=== PATIENT | female | born 1985 | race Two or more races ===

== ENCOUNTER 2024-12-01 11:12 | Emergency (ER) | payer MEDICAID, SELFPAY ==
[2024-12-01] VITALS (13 sets, daily range): BP systolic 128–145; BP diastolic 61–77; PULSE 69–94; RESP 14–19; TEMP 36.7–37.3; O2SAT 100; BMI 32.7
[2024-12-01 12:00] LABS: Basophils # (Auto) 0.1 Thou/mm3 (0.0-0.2); Basophils % (Auto) 1 % (0-2.5); Eosinophils % (Auto) 0 % (0-10); Hematocrit 23.5 % (36.0-46.0); Immature Granulocytes % (Auto) 0 % (0-0); Immature Granulocytes Auto 0.01 Thou/mm3 (0.00-0.00); Lymphocytes # (Auto) 1.6 Thou/mm3 (1.0-4.8); Lymphocytes % (Auto) 20 % (10-50); Mean Corpuscular HGB Conc 26.8 g/dl (31.0-37.0); Mean Corpuscular Hemoglobin 15.3 pg (25.0-35.0); Mean Corpuscular Volume 57 fL (80-100); Monocytes # (Auto) 0.4 Thou/mm3 (0.0-0.8); Monocytes % (Auto) 5 % (0-12); Neutrophils # (Auto) 5.9 Thou/mm3 (1.8-7.7); Neutrophils % (Auto) 73 % (37-80); Nucleated Red Blood Cell % 0 /100 WBC (0); Platelet Count 551 Thou/mm3 (140-440); RDW Standard Deviation 39.8 fL (36.4-46.3); Red Blood Count 4.13 Miln/mm3 (4.00-5.20); White Blood Count 8.1 Thou/mm3 (3.6-11.0)
[2024-12-01 12:13] LABS: INR 0.9 (0.9-1.3); Partial Thromboplastin Time 21.6 Seconds (22.0-36.0); Prothrombin Time 10.3 Seconds (9.0-12.2)
[2024-12-01 12:16] LABS: HCG,Qualitative Serum Negative
[2024-12-01 12:19] LABS: Hemoglobin 6.3 g/dL (12.0-16.0)
--- NOTE | 2024-12-01 12:28 | PD.EDRME ---
Rapid Medical Screening Exam RME Arrival date/time: 12/01/24 11:12 39-year-old female presents to the emergency department today with complaints of low hemoglobin Chief Complaint: General Adult/Misc Complain Vital signs: Vital Signs Temperature 99.1 F 12/01/24 11:31 Pulse Rate 94 12/01/24 11:31 Respiratory Rate 19 12/01/24 11:31 Blood Pressure 129/61 12/01/24 11:31 Pulse Oximetry (%) 100 12/01/24 11:31 Oxygen Delivery Method Room Air 12/01/24 11:31
[2024-12-01 12:31] LABS: Alanine Aminotransferase 7 U/L (10-49); Albumin, Serum 4.8 gm/dL (3.5-5.0); Albumin/Globulin Ratio 1.5 (1.2-2.2); Alkaline Phosphatase 69 U/L (46-116); Anion Gap 8 (7-16); Aspartate Amino Transferase < 8 U/L (0-34); BUN/Creatinine Ratio 13 Ratio (12-20); Bilirubin,Total 0.6 mg/dL (0.3-1.2); Blood Urea Nitrogen 10 mg/dL (9-23); Calcium 9.7 mg/dL (8.3-10.6); Calcium (Corrected) 9.7 mg/dL (8.5-10.1); Carbon Dioxide 24.2 mMol/L (20.0-31.0); Chloride 104 mMol/L (98-107); Creatinine (Component) 0.8 mg/dL (0.6-1.3); Estimated Creatinine Clearance 92.3 mL/min (>60); Globulin 3.3 gm/dL (2.3-3.5); Glucose 126 mg/dL (74-106); Osmolality,Calculated 272 (275-295); Potassium 3.5 mMol/L (3.4-5.1); Sodium 136 mMol/L (136-145); Total Protein 8.1 gm/dL (5.7-8.2); eGFR > 60 See Note
[2024-12-01 14:03] LABS: Ferritin 1 ng/mL (7.3-270.7); Total Iron Binding Capacity 443 mcg/dL (250-425)
[2024-12-01 14:14] LABS: Iron 10 mcg/dL (50-170); Percent Iron Saturation 2 % (20-55); Unsaturated Iron Binding 433 (225-295)
--- NOTE | 2024-12-01 14:18 | PD.EDADULT ---
ED General RME/HPI General Chief complaint: General Adult/Misc Complain Stated complaint: SENT FOR TRANSFUSION, BLOOD DONE SATURDAY Arrival date/time: 12/01/24 11:12 RME / HPI RME / HPI narrative: 12/01/24 11:12 39-year-old female presents to the emergency department today with complaints of low hemoglobin DR. BRICEÑO MAIN ED EVALUATION: 39 year old female with history of anemia presents to the ED sent by PCP at [facility] for evaluation of anemia today. Patient reports for several days has felt globally weak and intermittently dizzy. Consulted with PCP today who checked hgb in the office and advised to come here for further evaluation. Patient reports she does have heavy bleeding during menses and first day of last menses was 11/12/2024, lasting 7 days which is normal for her. Denies bleeding elsewhere. No other associated symptoms or complaints reported. Related Data Previous Rx's ?Medication ?Instructions ?Recorded Hydrocodone/Acetaminophen * (NORCO 1 tab PO Q4H PRN pain #30 tabs 04/20/16 5/325 *) Allergies Allergy/AdvReac Type Severity Reaction Status Date / Time No Known Allergies Allergy Verified 12/01/24 11:16 Review of Systems Review of Systems Narrative Review of Systems: Constitutional: DENIES; Fevers Eyes: DENIES; Loss of vision Head/Ear/Nose: DENIES; Loss of hearing Throat: DENIES; Dysphagia Cardiovascular: DENIES; Chest pain, dyspnea or syncope Respiratory: DENIES; Shortness of breath Gastrointestinal: DENIES; Rectal bleeding or melena. Genitourinary: DENIES; Dysuria (painful or difficult urination) Musculoskeletal: DENIES; Arthralgia (pain in a joint),; Skin: DENIES; Rash Neurological: DENIES; Loss of function or movement Psychiatric: DENIES; recent major life stressor, emotional problem, illicit drug use or abuse Endocrinology: DENIES; Weight change Hematologic/Lymphatic: SEE HPI +hxx of anemia and heavy vaginal bleeding. DENIES; Abnormal bruising Allergic/Immunologic: DENIES; Urticaria (hives) Past Medical History Past Medical History CARDIAC: Negative Congestive Heart Failure RESPIRATORY: Negative Chronic Obstructive Pulmonary Disease (COPD) GENITOURINARY: Negative Renal Disease ENDOCRINE: Negative Diabetes Mellitus Type 1 or Diabetes Mellitus Type 2 HEMATOLOGIC: Positive Anemia Surgical History SURGICAL: Positive Section Social History SMOKING STATUS: Never smoker ED Exam Narrative Physical exam: Physical Exam: General: The vital signs were reviewed. The patient is non-toxic, in no apparent distress and appears healthy with a patent airway, no respiratory distress and has no apparent circulatory problems. Head & Scalp: Normocephalic, atraumatic. Face: Appears normal and is without lesions, deformity. Ears: Left external pinna appears normal. Right external pinna appears normal. Eyes: Pale conjunctiva otherwise the sclera is anicteric. No obvious photophobia. The Left and Right Orbit/Lid/Conjunctiva appears normal without swelling, discoloration or injection. Nose: The nose is without deformity, discharge or tenderness; Throat: Appears normal. The mucous membranes are pink and moist without exudates, redness or mass seen. The tongue appears normal. Neck: The neck is supple and no apparent mass or adenopathy. Chest: The chest wall is normal in size and symmetry and has no chest wall tenderness or crepitus. The patient displays normal ventilator effort without retractions, accessory muscle use and has adequate air movement bilaterally with no wheezes and no rales. Cardiovascular: Regular rate and rhythm; No murmurs, rubs, or gallops; Gastrointestinal: The abdomen appears normal. No obvious hernias or mass. The abdomen is soft and benign, non-distended, with no pain, no guarding and no rebound tenderness. Bowel sounds are present and normal sounding. No CVA tenderness. Genitourinary: Back/Spine: Nontender normal inspection Extremities/Musculoskeletal/lymphatic: The bilateral upper and lower extremities are warm. There is no evidence of arterial insufficiency. There is no evidence of venous insufficiency/edema. The patient spontaneously moves bilateral upper and lower extremities with no pain and no limitation of movement. There is no apparent, injury or trauma. Skin: The skin is warm, dry and intact. No rashes. No petechia. No purpura. No abnormal bruising. The color is appropriate with no cyanosis. Mental status/Psychiatric: Mental status is appropriate for age. The patient has no apparent delusions, visual hallucinations, no apparent audible hallucinations. The patient has no apparent suicidal thoughts/ideation and no apparent homicidal thoughts/ideation. Neurological: The patient is awake, alert, interactive, cordial, cooperative and is oriented to name and situation. The patient follows commands and answers historical question with no impairment. There is no visual disturbance apparent. The pupils are equal and reactive bilaterally with normal eye movements and no diplopia The bilateral upper and lower extremities have normal strength, normal range of motion and normal functioning. The gait, station and balance appear to be baseline with no acute change Course Quality Measures none Orders Category Date Time Status Insert IV NOW Care 12/01/24 11:32 Active Transfuse,blood/blood products NOW Care 12/01/24 14:32 Active CBC Stat Lab 12/01/24 11:41 Completed Comprehensive Metabolic Panel Stat Lab 12/01/24 11:41 Completed Ferritin Stat Lab 12/01/24 11:41 Completed HCG,Qualitative Serum Stat Lab 12/01/24 11:41 Completed Iron Panel Stat Lab 12/01/24 11:41 Completed Partial Thromboplastin Time Stat Lab 12/01/24 11:41 Completed Prothrombin Time with INR Stat Lab 12/01/24 11:41 Completed Red Blood Cells Stat Lab 12/01/24 11:41 Results Type and Screen Stat Lab 12/01/24 11:41 Results Ferrous Sulfate Med 12/01/24 14:32 Discontinued 325 mg PO X1 ONE Vital Signs Vital signs: Vital Signs Temperature 99.1 F 12/01/24 11:31 Pulse Rate 94 12/01/24 11:31 Respiratory Rate 19 12/01/24 11:31 Blood Pressure 129/61 12/01/24 11:31 Pulse Oximetry (%) 100 12/01/24 11:31 Oxygen Delivery Method Room Air 12/01/24 11:31 Pulse ox is 100% on room air which is adequate. [facility] Patient data External records reviewed:: [facility] previous records (Per EMR review, patient has no previous ED visits ) Clinical information provided by:: patient Social determinants that could affect healthcare access:: none Patient has the following chronic illnesses:: Anemia How is presenting disease/condition affected by chronic disease/condition?: exacerbated by Evaluation data The following diagnostics were reviewed and interpreted by me:: lab results Lab and/or radiology exams considered but not ordered:: None Interpretation Summary: As noted above Medications Medications considered but not ordered:: None Medication administrations:: Medication Administration History Discontinued Medications Ferrous Sulfate (Ferrous Sulf 325 Mg Tablet) 325 mg PO X1 ONE Stop: 12/01/24 14:33 Last Admin: 12/01/24 16:19 Dose: 325 mg Documented By: ANDRADE See above Consultations Consultation(s) initiated? (list below): No Diagnosis Differential Diagnosis ED Complaint MDM: Iron deficient anemia, anemia, menorrhagia Most likely diagnosis given after review of the tests above:: Severe anemia Iron deficient anemia Menorrhagia Admission Indicated Admission indicated?: not indicated Explain why admission is indicated or not indicated:: Patient signed out to Dr. Arevalo. Admission Request Was there a request for admission?: No Disposition Plan Disposition Plan: other (specify) (Patient signed out to Dr. Arevalo pending completion of blood transfusion. ) Medical Decision Making MDM Narrative MDM Narrative: Patient evidently has had heavy periods and is sitting by the primary care doctor for significant anemia from the [facility] where he found her hemoglobin be 6.3 today. All her iron indices are quite low clearly indicate this patient has iron deficiency anemia. Because of dizziness with walking were going to transfuse her 2 units of packed red blood cells today. We had a long discussion and we consented the patient verbally she understands the risks and benefits and agrees to go ahead and get 2 units of blood understanding the possible rare risks of infection or complications to blood transfusions. Also she was instructed to start iron sulfate 325 mg 3 times a day follow-up with her primary care doctor in 3 to 5 days for recheck. She also knows she needs get the federal judicial law clerk to make sure her vaginal bleeding is controlled or stop. Reevaluation the patient at 1745 hrs. shows to be quite comfortable a blood transfusion is started she is tolerating so far quite well. After the second bag will be a repeat CBC done and care of this patient will be signed out to the oncoming doctor at 1800 hrs. to make a final disposition. Differential Diagnosis Differential Diagnosis: Iron deficient anemia, anemia, menorrhagia Lab Data 12/01/24 11:41 12/01/24 11:41 Labs: Lab Results 12/01/24 Range/Units 11:41 WBC 8.1 (3.6-11.0) Thou/mm3 RBC 4.13 (4.00-5.20) Miln/mm3 Hgb 6.3 L* (12.0-16.0) g/dL Hct 23.5 L (36.0-46.0) % MCV 57 L (80-100) fL MCH 15.3 L (25.0-35.0) pg MCHC 26.8 L (31.0-37.0) g/dl RDW Std Deviation 39.8 (36.4-46.3) fL Plt Count 551 H (140-440) Thou/mm3 Neut % (Auto) 73 (37-80) % Lymph % (Auto) 20 (10-50) % [place] % (Auto) 5 (0-12) % Eos % (Auto) 0 (0-10) % Baso % (Auto) 1 (0-2.5) % Neut # (Auto) 5.9 (1.8-7.7) Thou/mm3 Lymph # (Auto) 1.6 (1.0-4.8) Thou/mm3 [place] # (Auto) 0.4 (0.0-0.8) Thou/mm3 Eos # (Auto) 0.0 (0.0-0.5) Thou/mm3 Baso # (Auto) 0.1 (0.0-0.2) Thou/mm3 Immature Gran # (Auto) 0.01 H (0.00-0.00) Thou/mm3 Absolute Nucleated RBC 0.00 (0.00-0.00) Thou/mm3 Immature Gran % 0 (0-0) % Nucleated RBC % 0 (0) /100 WBC PT 10.3 (9.0-12.2) Seconds INR 0.9 (0.9-1.3) APTT 21.6 L (22.0-36.0) Seconds Sodium 136 (136-145) mMol/L Potassium 3.5 (3.4-5.1) mMol/L Chloride 104 (98-107) mMol/L Carbon Dioxide 24.2 (20.0-31.0) mMol/L Anion Gap 8 (7-16) BUN 10 (9-23) mg/dL Creatinine 0.8 (0.6-1.3) mg/dL Estim Creat Clear Calc 92.3 (>60) mL/min eGFR > 60 (60 - ) See Note BUN/Creatinine Ratio 13 (12-20) Ratio Glucose 126 H (74-106) mg/dL Calculated Osmolality 272 L (275-295) Calcium 9.7 (8.3-10.6) mg/dL Corrected Calcium 9.7 (8.5-10.1) mg/dL Iron 10 L (50-170) mcg/dL TIBC 443 H (250-425) mcg/dL Iron Saturation 2 L (20-55) % Unsat Iron Binding 433 H (225-295) Ferritin 1 L (7.3-270.7) ng/mL Total Bilirubin 0.6 (0.3-1.2) mg/dL AST < 8 (0-34) U/L ALT 7 L (10-49) U/L Alkaline Phosphatase 69 (46-116) U/L Total Protein 8.1 (5.7-8.2) gm/dL Albumin 4.8 (3.5-5.0) gm/dL Globulin 3.3 (2.3-3.5) gm/dL Albumin/Globulin Ratio 1.5 (1.2-2.2) HCG, Qual Negative Blood Type O Positive Antibody Screen NEGATIVE Crossmatch See Detail Blood Bank Wristband ID Yes Discharge Plan Plan Patient Disposition: HOME (Self Care) Prescriptions/Referrals Prescriptions/Med Rec: No Action Hydrocodone/Acetaminophen * (NORCO 5/325 *) 1 TAB tablet 1 tab PO Q4H PRN (Reason: pain) Qty: 30 0RF Referrals: Nuno Webber PA-C [Primary Care Provider] - In 1 week Problem List Clinical Impression: Severe anemia, Iron deficiency anemia, Menorrhagia Patient/Caregiver Discharge Instructions Additional Instructions: Please follow-up with your doctors to address your vaginal bleeding and your iron deficiency anemia. As we discussed you can take [id number] iron sulfate better known as ferrous sulfate 325 mg orally 3 times a day for the next 2 months. Your doctor should advise you further as you may need to continue that for even a longer duration. If you are getting worse bleeding in a serious way or weak or dizzy or passing out please return for further evaluation. Print Language: Dutch Stand Alone Forms: [facility] Award Info., Patient Portal Info Letter
[2024-12-01] MEDS: FERROUS SULF 325 MG TABLET PO (16:19)
--- NOTE | 2024-12-01 17:20 | PC.NURSE ---
PATIENT VERBALIZED UNDERSTANDING OF BLOOD TRANSFUSION AND RISK AND BENEFITS REGARDING TRANSFUSION. PER [facility] CONSENT IN THE CHART AND THIS NURSE VERIFIED PATIENT'S SIGNATURE PRIOR TO STARTING TRANSFUSION.
--- NOTE | 2024-12-01 21:58 | PD.EDADDENDU ---
Emergency Room Addendum <Adriana Beltran - Last Filed: 12/01/24 22:00> Addendum Narrative: 1800: Care assumed from Dr. Edwards, the previous shift emergency physician. Past medical, surgical, social and family history reviewed. Vitals and home medications reviewed. I will assume the care of the patient at this time. Please refer to the emergency department record for history and examination from initial visit.? Physical exam by me shows patient under no acute distress at this time. 0: Patient is stable and vitals signs are stable; HR 74, BP 128/69, RR 18, satting 100% at room air. <Gena Ortiz - Last Filed: 12/01/24 22:54> Addendum Narrative: 1800: Care assumed from Dr. Edwards, the previous shift emergency physician. Past medical, surgical, social and family history reviewed. Vitals and home medications reviewed. I will assume the care of the patient at this time. Please refer to the emergency department record for history and examination from initial visit.? Physical exam by me shows patient under no acute distress at this time. 2150: Patient is stable and vitals signs are stable; HR 74, BP 128/69, RR 18, satting 100% at room air. 2253: Blood transfusion is completed. Patient is stable to be discharged home.
--- NOTE | 2024-12-01 22:45 | PC.NURSE ---
Lab at the bedside for repeat H&H.
[2024-12-01 23:14] LABS: Hematocrit 29.5 % (36.0-46.0)
[2024-12-01 23:15] LABS: Hemoglobin 8.7 g/dL (12.0-16.0)
== END 2024-12-01 23:11 | disposition home or self-care (01) ==
PROVIDERS: Emergency Medicine; Nurse Practitioner Primary Care; Emergency Provider Emergency Medicine
DX: D50.9 Iron deficiency anemia, unspecified (principal); N92.0 Excessive and frequent menstruation with regular cycle
CPT/HCPCS: 36415; 36430; 80053; 82728; 83540; 83550; 84703; 85014; 85018; 85025; 85610; 85730; 86850; 86900; 86901; 86923; 99285; P9016; A9270